=== PATIENT | male | born 1990 ===

== ENCOUNTER 2019-05-12 12:25 | Inpatient (IN) | payer OTHER ==
[~2019-05-12] VITALS: Ht 177.8 cm; Wt 100.0 kg
[2019-05-12 13:09] LABS: BASOPHILS % (AUTO) 0.2 % (0.0-2.0); EOSINOPHILS % (AUTO) 3.2 % (1.0-6.0); HEMATOCRIT 45.2 % (41-53); HEMOGLOBIN 15.4 g/dL (13.5-17.5); LYMPHOCYTES % (AUTO) 21.7 % (22.0-44.0); MEAN CORPUSCULAR HEMOGLOBIN 30.2 pg (26.0-34.0); MEAN CORPUSCULAR HGB CONC 34.1 G/dL (31.0-37.0); MEAN CORPUSCULAR VOLUME 89 fL (80-100); MONOCYTES # (AUTO) 0.7 K/uL (0.1-1.0); MONOCYTES % (AUTO) 7.3 % (2.0-9.0); NEUTROPHILS # (AUTO) 6.2 K/uL (1.8-7.7); NEUTROPHILS % (AUTO) 67.6 % (40.0-70.0); PLATELET COUNT (AUTO) 268 K/uL (150-450); RED BLOOD CELL COUNT(AUTO) 5.11 MIL/uL (4.50-5.90); RED CELL DISTRIBUTION WIDTH 13.5 % (11.5-14.5)
[2019-05-12] MEDS ORDERED: ACETAMINOPHEN 325 MG TABLET PO PRN ×2 (13:15→19:30)
[2019-05-12] MEDS ORDERED: 0.9% SODIUM CHLORIDE 10 ML SYRINGE IVP PRN (13:15)
[2019-05-12] MEDS ORDERED: ONDANSETRON HCL 4 MG/2 ML VIAL IVP PRN ×2 (13:15→19:30)
[2019-05-12 13:17] LABS: AMPHET/METH SCREEN,URINE POSITIVE (NEGATIVE); BARBITURATE SCREEN, URINE NEGATIVE (NEGATIVE); BENZODIAZEPINES SCREEN,URINE NEGATIVE (NEGATIVE); CANNABINOID SCREEN,URINE POSITIVE (NEGATIVE); COCAINE SCREEN,URINE NEGATIVE (NEGATIVE); METHADONE SCREEN, URINE NEGATIVE (NEGATIVE); OPIATE SCREEN,URINE NEGATIVE (NEGATIVE); PHENCYCLIDINE SCREEN,URINE NEGATIVE (NEGATIVE)
[2019-05-12 13:18] LABS: ANION GAP 5 mmol/L (8-16); CALCIUM, TOTAL 9.1 mg/dL (8.8-10.5); CARBON DIOXIDE 33 mmol/L (22-29); CHLORIDE 104 mmol/L (98-107); CREATININE 0.99 mg/dL (0.60-1.30); GLOMERULAR FILTR. RATE CALC > 60 mL/min (>60); GLUCOSE,RANDOM 95 mg/dL (70-110); POTASSIUM 3.9 mmol/L (3.5-5.1); SODIUM SERUM 142 mmol/L (136-145); UREA NITROGEN, BLOOD 15 mg/dL (7-18)
[2019-05-12 13:21] LABS: PROTHROMBIN TIME 10.2 SEC (9.4-11.6)
[2019-05-12 13:42] LABS: ALANINE AMINOTRANSFERASE 76 U/L (12-78); ALBUMIN 3.8 g/dL (3.4-5.0); ALKALINE PHOSPHATASE 82 U/L (46-116); ASPARTATE AMINOTRANSFERASE 35 U/L (15-37); BILIRUBIN,TOTAL 0.9 mg/dL (0.1-1.0); CREATINE KINASE, TOTAL ONLY 145 U/L (39-308); TOTAL PROTEIN, SERUM 8.2 g/dL (6.4-8.2)
[2019-05-12 14:45] VITALS: BP 153/72
[2019-05-12 14:48] VITALS: BP 153/72
[2019-05-12] MEDS ORDERED: ZOLPIDEM TARTRATE 5 MG TABLET PO PRN (19:30)
[2019-05-12] MEDS ORDERED: GuaiFENesin/CODEINE [SUGAR FREE] 200-20MG/10 ML SYRUP UDCUP PO PRN (19:30)
[2019-05-12] MEDS ORDERED: IPRATROPIUM BROMIDE 0.5 MG/2.5 ML NEB SOLUTION NEB PRN (19:30)
[2019-05-12] MEDS ORDERED: BISACODYL 10 MG RECTAL RECTAL SUPPOSITORY PR PRN (19:30)
[2019-05-12] MEDS ORDERED: MAGNESIUM HYDROXIDE SUSPENSION 30 ML UDCUP PO PRN (19:30)
[2019-05-12] MEDS ORDERED: ALBUTEROL SULFATE 2.5 MG/0.5 ML NEB SOLUTION NEB PRN (19:30)
[2019-05-12 20:11] VITALS: BP 142/84
[2019-05-12] MEDS: DOCUSATE SODIUM 100 MG CAPSULE PO SCH (21:00)
[2019-05-12] MEDS: BENZONATATE 100 MG CAPSULE PO SCH (22:10)
[2019-05-12] MEDS ORDERED: LORazepam 2 MG/ML VIAL IVP PRN (23:30)
[2019-05-12 23:46] VITALS: BP 144/84
[2019-05-12] MEDS: HEPARIN SODIUM,PORCINE 5,000 UNITS/ML VIAL SQ SCH (23:52)
[2019-05-13 05:06] VITALS: BP 136/86
[2019-05-13 07:47] VITALS: BP 113/71
[2019-05-13] MEDS: BENZONATATE 100 MG CAPSULE PO SCH ×3 (08:25→20:57)
[2019-05-13] MEDS: DOCUSATE SODIUM 100 MG CAPSULE PO SCH ×2 (08:26→20:58)
[2019-05-13] MEDS: THIAMINE HCL 100 MG TABLET PO SCH (08:26)
[2019-05-13] MEDS: FOLIC ACID 1 MG TABLET PO SCH (08:26)
[2019-05-13] MEDS: HEPARIN SODIUM,PORCINE 5,000 UNITS/ML VIAL SQ SCH ×3 (08:26→20:58)
[2019-05-13] MEDS: MULTIVITAMINS, THERAPEUTIC TABLET PO SCH (08:26)
[2019-05-13 11:40] VITALS: BP 124/65
[2019-05-13 15:57] VITALS: BP 141/87
[2019-05-13 19:36] VITALS: BP 146/84
[2019-05-13 23:30] VITALS: BP 131/73
[2019-05-14 05:25] VITALS: BP 130/77
[2019-05-14 07:20] VITALS: BP 142/75
[2019-05-14] MEDS: THIAMINE HCL 100 MG TABLET PO SCH (08:11)
[2019-05-14] MEDS: BENZONATATE 100 MG CAPSULE PO SCH (08:11)
[2019-05-14] MEDS: MULTIVITAMINS, THERAPEUTIC TABLET PO SCH (08:12)
[2019-05-14] MEDS: FOLIC ACID 1 MG TABLET PO SCH (08:12)
[2019-05-14] MEDS: DOCUSATE SODIUM 100 MG CAPSULE PO SCH (08:12)
[2019-05-14] MEDS: HEPARIN SODIUM,PORCINE 5,000 UNITS/ML VIAL SQ SCH (08:12)
[2019-05-14 11:10] VITALS: BP 147/91
[2019-05-14 17:09] LABS: QUANTIFERON+, Nil Value 0.03 IU/mL; QUANTIFERON+,Mitogen Value >10.00 IU/mL; QUANTIFERON+,TB1 Antigen Value 0.07 IU/mL; QUANTIFERON, TB GOLD PLUS Negative (Negative)
== END 2019-05-14 11:50 | DRG 204 ==
LOC: EMS 12:27 → 6S 13:26
PROVIDERS: ADMIT Hospitalist; ATTEND Hospitalist
DX: R05 Cough (principal); F12.90 Cannabis use, unspecified, uncomplicated; I10 Essential (primary) hypertension; F17.210 Nicotine dependence, cigarettes, uncomplicated; F10.10 Alcohol abuse, uncomplicated; Y90.9 Presence of alcohol in blood, level not specified
CPT/HCPCS: 83735; 86480; 94640; G0480; J1644; J2060